=== PATIENT | female | born 1955 | race Caucasian/White ===

== ENCOUNTER 2024-02-11 17:49 | Emergency (ER) | payer MEDICARE, SELFPAY ==
[2024-02-11 18:01] VITALS: BP 173/84; PULSE 73; RESP 18; TEMP 36.6; O2SAT 94; BMI 41.7
[2024-02-11 19:23] VITALS: BP 148/89; PULSE 74; O2SAT 97
[2024-02-11] MEDS: lidocaine-epi 2% 20 mL INJ INJECTION (19:25)
--- NOTE | 2024-02-11 20:30 | W.ED.WOUNDLC ---
HPI - Wound/Laceration General: Chief Complaint: Wound/Laceration Stated Complaint: Left calf laceration - bleeding Time Seen by Provider: 02/11/24 18:05 Source: patient Mode of arrival: ambulatory Limitations: no limitations History of Present Illness: Patient is a 68-year-old female who presents the emergency department the laceration to her left lateral leg after bumping it on a piece of furniture. No blood thinner use, tetanus is up-to-date. Bleeding is controlled with direct pressure on arrival. No distal neurovascular symptoms reported. No contamination or foreign body. Extremity Location: Left: lower leg Place: home Patient tetanus UTD: Yes Context: accidental Associated symptoms: Denies chills, fever(s), nausea or vomiting Related Data Allergies Allergy/AdvReac Type Severity Reaction Status Date / Time Cephalosporins Allergy ALGY-Rash Verified 02/11/24 18:03 Review of Systems General: Reports: 10 or more systems reviewed and unremarkable except in HPI and below Const: Denies: fever(s) or chills Card: Denies: chest pain Resp: Denies: dyspnea GI: Denies: abdominal pain, nausea, vomiting or diarrhea Musc: Denies: extremity pain or joint pain Skin/Breast: Reports: skin pain, skin tenderness and new lesions (Laceration left lateral lower leg); Denies: rash Neuro: Denies: headache(s) Physical Exam Const: COMMON NORMALS: no acute distress, average body habitus, patient oriented x3, no limitations, healthy appearing, alert and well nourished HENMT: COMMON NORMALS: normocephalic and atraumatic HEAD & SCALP: normocephalic and atraumatic Neck/C-Spine: COMMON NORMALS: full ROM, no lymphadenopathy, supple and no meningeal signs Resp: COMMON NORMALS: normal respiratory effort, No use of accessory muscles and clear to auscultation bilaterally AUSCULTATION: clear to auscultation bilaterally Cardio: COMMON NORMALS: regular rate and regular rhythm RATE: regular rate RHYTHM: regular rhythm Extremity: COMMON NORMALS: full ROM and capillary refill normal Neuro: COMMON NORMALS: patient oriented x3 SENSORIUM/ORIENTATION: Yes alert MENINGEAL SIGNS: Yes no meningeal signs Skin: COMMON NORMALS: turgor normal NARRATIVE SKIN EXAM: Irregular shaped, clean, 6 cm laceration to left distal lower leg to the lateral aspect. There is no active bleeding at this time and no contamination or foreign body. GENERAL SKIN EXAM: turgor normal Procedures Laceration Laceration 1: Site: lower extremity Side (If applicable): left Size (cm): 6 Description: irregular and clean Depth: simple, single layer Local Anesthetic: lidocaine 2% and with epi Amount of anesthesia used (mL): 8 Pre-repair: wound explored Skin layer closed with: other (Prolene) Size (cm): 4-0 Number of sutures: 10 Technique: simple, interrupted Course Vital Signs: Vital signs: Vital Signs Temperature 97.9 F 02/11/24 18:01 Pulse Rate 74 02/11/24 19:23 Respiratory Rate 18 02/11/24 18:01 Blood Pressure 148/89 02/11/24 19:23 Pulse Oximetry 97 02/11/24 19:23 Oxygen Delivery Me thod Room Air 02/11/24 18:01 MDM - Wound/Laceration Medical Decision Making Patient's tetanus was up-to-date, did have a laceration earlier today was repaired here in the emergency department, see procedure note. It was clean, no foreign body or contamination. No need for antibiotics at this time. Procedure was tolerated well, and she will have the sutures out in 7-10 days. Return precautions were given. No radiology studies performed this visit Discharge Plan Discharge Patient Disposition: Home Clinical Impression: Laceration of left leg Condition: Stable Discharge Orders: Discharge ED (Routine); Ordered 02/11/24 Ordered By: Rosales Carter Patient Instructions: Laceration (ED) Activity Restrictions/Additional Instructions: Sutures out in 7-10 days. Keep wound dry for the first 48 hours, afterwards you may dab with warm soap and water and then dab dry afterwards. Avoid sun exposure. Monitor for any signs of infection and return with any concerns. Tylenol/ibuprofen for pain. Coding Level of Care Code ED Cam Milling Machine Operator for Joey Chinchilla
== END 2024-02-11 19:26 | disposition home or self-care (01) ==
PROVIDERS: Emergency Provider Physician Assistant
DX: S81.812A Laceration without foreign body, left lower leg, initial encounter (principal); W22.8XXA Striking against or struck by other objects, initial encounter
CPT/HCPCS: 12002; 99282

== ENCOUNTER 2024-05-12 09:28 | Outpatient (CLI) | payer MEDICARE, SELFPAY ==
--- NOTE | 2024-05-12 09:40 | MM_ITS ---
WS: [id number] VIEWS: MLO and CC views both breasts. 3D digital tomosynthesis is also included in this exam. No comparisons. Findings: There are scattered areas of fibroglandular density. Questionable small spiculated nodule in the upper outer quadrant of the LEFT breast at mid depth. No suspicious calcification. Prominent calcified density with architectural distortion seen in the lateral posterior RIGHT breast has the appearance of a residual hematoma. Compression spot images with tomography of the LEFT breast in the CC, MLO and 90 degree lateral projections would be recommended for follow-up. MM/MM scr BI tomosynthesis [id number] Impression: BI-RADS: 0 - Incomplete: Need additional imaging evaluation. FOLLOW-UP: Need Additional Imaging This mammogram was also analyzed by the Computer Aided Detection System R2 Imag e Fitting Room Operator.
== END 2024-05-12 09:29 | disposition home or self-care (01) ==
LOC: RAD 09:30
PROVIDERS: PCP Family Medicine; Visit Provider Family Medicine
DX: Z12.31 Encounter for screening mammogram for malignant neoplasm of breast (principal); R92.323 Mammographic fibroglandular density, bilateral breasts; N63.21 Unspecified lump in the left breast, upper outer quadrant; N63.10 Unspecified lump in the right breast, unspecified quadrant
CPT/HCPCS: 77063; 77067

== ENCOUNTER 2024-06-28 09:48 | Outpatient (CLI) | payer MEDICARE, SELFPAY ==
--- NOTE | 2024-06-28 10:00 | MM_ITS ---
WS: [email or web address] VIEWS: MLO, CC, and ML views LEFT breast only. 3D digital tomosynthesis is also included in this exam. Comparison made with prior exam of 05/12/2024. Findings: There are scattered areas of fibroglandular density. No suspicious mass, tumor calcification or architectural distortion in the LEFT breast. MM/MM diag LT tomosynthesis [id number] Impression: BI-RADS: 0 - Incomplete: Need additional imaging evaluation. FOLLOW-UP: Need Additional Imaging. Regional ultrasound recommended. This mammogram was also analyzed by the Computer Aided Detection System R2 Imag e Dredge Worker.
--- NOTE | 2024-06-28 10:18 | US_ITS ---
WS: [id number] Exam: US breast LT limited* [id number] Date/Time of Exam: 06/28/2024 10:18 AM Reason For Exam: Abnormal Mammo Regional ultrasound of the LEFT breast from the 2:00 to the 5 o'clock position demonstrates no evidence of suspicious solid mass or nodule. No cysts were identified. Recommendations: Continue yearly screening mammography. US/US breast LT limited* [id number] IMPRESSION: 1. No suspicious ultrasound finding.
== END 2024-06-28 09:49 | disposition home or self-care (01) ==
LOC: RAD 09:50
PROVIDERS: PCP Family Medicine; Visit Provider Family Medicine
DX: N63.25 Unspecified lump in the left breast, overlapping quadrants (principal); R92.323 Mammographic fibroglandular density, bilateral breasts
CPT/HCPCS: 76642; 77061; G0279

== ENCOUNTER → 2024-09-20 14:17 | Outpatient (BNVA) | payer MEDICARE, SELFPAY | PROVIDERS: PCP Family Medicine; Visit Provider Family Medicine | DX: E03.9 Hypothyroidism, unspecified (principal); I10 Essential (primary) hypertension | CPT/HCPCS: 80053; 80061; 84439; 84443; 85025 ==

== ENCOUNTER 2024-10-25 14:18 | Outpatient (CLI) | payer MEDICARE, SELFPAY ==
--- NOTE | 2024-10-25 14:29 | XRR_ITS ---
PROCEDURE INFORMATION: Exam: XR Right Knee Exam date and time: 10/25/2024 2:49 PM Age: 69 years old Clinical indication: Pain; Knee; Right; Additional info: Arthritis TECHNIQUE: Imaging protocol: Radiologic exam of the right knee. Views: 3 views. COMPARISON: No relevant prior studies available. FINDINGS: Bones/joints: Moderate medial compartment narrowing and tricompartment spurring. No fracture or dislocation. No erosive changes. No acute osseous or joint abnormality. Soft tissues: Normal. XR/XR knee RT 3V* [id number] IMPRESSION: Degenerative changes.
== END 2024-10-25 14:19 | disposition home or self-care (01) ==
PROVIDERS: PCP Family Medicine; Visit Provider Family Medicine
DX: M25.561 Pain in right knee (principal); I10 Essential (primary) hypertension; M17.11 Unilateral primary osteoarthritis, right knee
CPT/HCPCS: 73562; 84439; 84443

== ENCOUNTER → 2024-10-29 08:53 | Outpatient (BNVA) | payer MEDICARE, SELFPAY | PROVIDERS: PCP Family Medicine; Visit Provider Physician Assistant | DX: M25.561 Pain in right knee (principal); M17.11 Unilateral primary osteoarthritis, right knee; Z01.89 Encounter for other specified special examinations | CPT/HCPCS: 73560; 73565; 99204 ==

== ENCOUNTER → 2024-11-17 11:20 | Outpatient (BNVA) | payer MEDICARE, SELFPAY | PROVIDERS: PCP Family Medicine; Referring Provider Family Medicine; Visit Provider Internal Medicine Cardiovascular Disease | DX: Z01.818 Encounter for other preprocedural examination (principal); R00.0 Tachycardia, unspecified; I10 Essential (primary) hypertension; Z87.74 Personal history of (corrected) congenital malformations of heart and circulatory system; E78.5 Hyperlipidemia, unspecified; R60.0 Localized edema; R06.02 Shortness of breath; Z01.810 Encounter for preprocedural cardiovascular examination | CPT/HCPCS: 36415; 80048; 83880; 93005; 99204 ==

== ENCOUNTER 2024-12-07 07:55 | Outpatient (CLI) | payer MEDICARE, SELFPAY ==
--- NOTE | 2024-12-07 08:00 | CT_ITS ---
WS: [id number] CT RIGHT knee, noncontrast HISTORY: M17.11 - Unilateral primary osteoarthritis, right knee TECHNIQUE: Protocol for [facility] total knee replacement has been obtained. This includes axial imaging through the RIGHT hip, RIGHT knee and RIGHT ankle. DLP: 971.01 mGy.cm COMPARISON: 10/29/2024 Hips: Degenerative air in the SI joints. Very minimal narrowing of the hip joints. No destructive bone lesions. Mild sigmoid diverticulosis. No free fluid in the pelvis. No adenopathy. RIGHT knee: Severe tricompartment osteoarthritis. Osteophytes in all 3 compartments with joint space narrowing. No fracture. Small suprapatellar joint effusion. Moderate-sized Guevara's cyst. Negative RIGHT ankle. CT/CT knee RT [facility] [id number] IMPRESSION: CT imaging provided for [facility] robotic total knee replacement.
[2024-12-07 12:11] LABS: Hematocrit 40.9 % (36-47); Hemoglobin 12.90 g/dL (11.27-16.99); Mean Corpuscular HGB Conc 31.5 g/dL (30-55); Mean Corpuscular Hemoglobin 30.4 pg (27-33); Mean Corpuscular Volume 96.5 fl (85-98); Nucleated Red Blood Cells % 0 %; Platelet Count 189 10^3/cmm (157-399); Red Blood Count 4.24 10^6/uL (3.85-5.65); White Blood Count 7.94 10^3/uL (3.29-11.43)
[2024-12-07 12:25] LABS: Alanine Aminotransferase 13 U/L (0-33); Albumin Level 3.9 g/dL (3.5-5.2); Alkaline Phosphatase 73 U/L (35-105); Anion Gap 11.4 (5-19); Aspartate Amino Transferase 15 U/L (0-32); Blood Urea Nitrogen 27 mg/dL (8-23); Calcium 8.6 mg/dL (8.5-10.5); Carbon Dioxide 29 mmol/L (22-29); Chloride 104 mmol/L (98-107); Globulin 2.9 g/dL (1.3-4.6); Glucose 104 mg/dL (65-115); Osmolality Calculated 297 mOsm/kg (285-295); Potassium 3.4 mmol/L (3.5-5.1); Sodium 141 mmol/L (136-145); Total Protein 6.8 g/dL (6.6-8.7)
[2024-12-07 12:33] LABS: Glucose Urine UA Negative (Normal); Nitrate Urine Negative (Negative); Specific Gravity, Urine 1.028 (1.005-1.030)
[2024-12-07 12:38] LABS: Add Urine Microscopic? YES
== END 2024-12-07 07:56 | disposition home or self-care (01) ==
LOC: RAD 07:57
PROVIDERS: PCP Family Medicine; Visit Provider Student in an Organized Health Care Education/Training Program
DX: M17.11 Unilateral primary osteoarthritis, right knee (principal); Z01.818 Encounter for other preprocedural examination; M46.1 Sacroiliitis, not elsewhere classified; K57.30 Diverticulosis of large intestine without perforation or abscess without bleeding; M25.761 Osteophyte, right knee; M25.461 Effusion, right knee; M71.21 Synovial cyst of popliteal space [Baker], right knee
CPT/HCPCS: 36415; 73700; 80053; 81001; 85025; 99213

== ENCOUNTER → 2024-12-14 09:17 | Outpatient (BNVA) | payer MEDICARE, SELFPAY | PROVIDERS: PCP Family Medicine; Visit Provider Family Medicine | DX: Z01.818 Encounter for other preprocedural examination (principal) | CPT/HCPCS: 81003; 87086 ==

== ENCOUNTER 2024-12-27 15:06 | Observation (INO) | payer MEDICARE, SELFPAY ==
[2024-12-27] VITALS (21 sets, daily range): BP systolic 102–134; BP diastolic 48–89; PULSE 64–82; RESP 16–28; TEMP 36.2–36.8; O2SAT 91–99; BMI 41.8
--- NOTE | 2024-12-27 07:31 | W.PM.OPSUD ---
Surgery/Procedure H&P Update DATE OF PROCEDURE: December 27, 2024 DATE H&P PERFORMED: 12/07/24 H&P UPDATE INFORMATION: I have reviewed H&P completed within last 30 days, I have examined patient prior to procedure and No changes to prior documentation CHANGES TO PREVIOUS DOCUMENTATION: Patient seen and examined and no change in health since last office visit she is cleared the preoperative clearance process her initial UA was a contaminant and had normal elvira recheck with Dr. Jean is negative she denies any urinary symptoms today at this point in time she has been medically optimized and she is ready to proceed with surgical intervention for a right total knee arthroplasty. Patient understands incidence procedure risk benefits complication alternatives surgery and through shared decision-making patient like to proceed with surgical invention. All questions answered at this time. PREOP DIAGNOSIS: Right knee DJD PRIMARY INDICATION FOR PROCEDURE: right knee DJD PLANNED PROCEDURE: Operation Date: 12/27/24 10:00 Proposed Procedures p RIGHT Ashish Robot Total Knee Arthroplasty(Right) - Troy Arellano DO
[2024-12-27] MEDS: acetaminophen 1,000 MG/100 ML PIGGYBACK 400 MG IV ×3 (07:36→23:45)
[2024-12-27 08:11] LABS: Hematocrit 38.7 % (36-47); Hemoglobin 12.50 g/dL (11.27-16.99); Mean Corpuscular HGB Conc 32.3 g/dL (30-55); Mean Corpuscular Hemoglobin 30.0 pg (27-33); Mean Corpuscular Volume 93.0 fl (85-98); Nucleated Red Blood Cells % 0 %; Platelet Count 174 10^3/cmm (157-399); Red Blood Count 4.16 10^6/uL (3.85-5.65); White Blood Count 7.69 10^3/uL (3.29-11.43)
[2024-12-27 08:26] LABS: Anion Gap 15.8 (5-19); Blood Urea Nitrogen 23 mg/dL (8-23); Calcium 9.0 mg/dL (8.5-10.5); Carbon Dioxide 26 mmol/L (22-29); Chloride 104 mmol/L (98-107); Creatinine Clr Calc Pharmacy 66.6916; Glucose 117 mg/dL (65-115); Osmolality Calculated 299 mOsm/kg (285-295); Potassium 3.8 mmol/L (3.5-5.1); Sodium 142 mmol/L (136-145)
--- NOTE | 2024-12-27 09:08 | ANES.PREANE2 ---
Pre-Anesthetic Assessment Height/Weight: Height 1.57 m Weight 103.873 kg Temp Pulse Resp BP Pulse Ox O2 Del Method 97.7 F 71 17 123/89 95 Room Air 12/27/24 08:07 12/27/24 08:07 12/27/24 08:07 12/27/24 08:07 12/27/24 08:07 12/27/24 08:07 Preop Diagnosis: Right knee DJD Operation Date: 12/27/24 10:00 Proposed Procedures p RIGHT Ashish Robot Total Knee Arthroplasty(Right) - Troy Arellano DO Familial anesthetic complications: None Was Beta Claudette taken within 24 hours: N/A Was Clonidine taken within 24 hours: N/A Last intake: Intake Last Liquid Date 12/26/24 Last Liquid Time 00:00 Last Solid Date 12/26/24 Last Solid Time 21:00 Social No alcohol and No tobacco Exam alert, oriented x 3, clear to auscultation bilaterally and regular rate & rhythm Airway Mallampati: Class II Dentition: full CV/HEM PFO closed now Metabolic Hyperlipidemia, Morbid Obesity and Thyroid Disease Anesthetic Plan ASA status: 3 Anesthesia: Regional (specify below) Other: spinal Risk of > 500 ml blood loss (7ml/kg in children): No Medications/Allergies Home Medications ?Medication ?Instructions ?Recorded ?Confirmed ?Last Taken ?Type aspirin 81 mg tablet,delayed 81 mg PO DAILY 04/29/24 12/23/24 12/17/24 History release cholecalciferol (vitamin D3) 50 50 mcg PO DAILY #90 caps 04/29/24 12/23/24 12/23/24 Rx mcg (2,000 unit) capsule mirabegron 50 mg tablet,extended 50 mg PO DAILY #90 tabs 04/29/24 12/23/24 12/23/24 Rx release 24 hr (Myrbetriq) sertraline 100 mg tablet 100 mg PO DAILY #90 tabs 04/29/24 12/27/24 12/27/24 Rx furosemide 40 mg tablet (Lasix) 40 mg PO QAM 30 days #90 tabs 10/25/24 12/23/24 12/23/24 Rx levothyroxine 50 mcg capsule 50 mcg PO DAILY #90 caps 10/25/24 12/27/24 12/27/24 Rx potassium chloride 10 mEq 10 meq PO DAILY #90 caps 10/25/24 12/23/24 12/23/24 Rx capsule,extended release atorvastatin 10 mg tablet 10 mg PO DAILY #90 tabs 11/15/24 12/23/24 12/23/24 Rx alprazolam 0.25 mg tablet 0.25 mg PO DAILY PRN Anxiety 11/17/24 12/23/24 Unknown History diltiazem HCl 240 mg 240 mg PO DAILY #90 caps 11/17/24 12/27/24 12/27/24 Rx capsule,extended release 24 hr (Cardizem CD) Allergies Allergy/AdvReac Type Severity Reaction Status Date / Time Cephalosporins Allergy ALGY-Rash Verified 12/23/24 14:19 Current Medications Generic Name Dose Route Start Last Admin Trade Name Freq PRN Reason Stop Dose Admin Sodium Chloride 1,000 mls @ 30 mls/hr 12/27/24 07:15 12/27/24 07:38 Sodium Chloride 0.9% IV 12/28/24 07:14 30 mls/hr .Q24H JAY Administration PFSH Anesthesia Medical History Hypovitaminosis D Hyperlipidemia Anxiety Moderate major depression BMI 40.0-44.9, adult Hypertension Hypothyroidism Overactive bladder Tachycardia History of fracture of radius Surgical History History of knee replacement History of hysterectomy H/O arthroscopic knee surgery History of section Family History Grandfather Stroke Alcohol dependence Grandmother Liver disease Father Diabetes Stroke Mother Lung cancer Social History Smoking and tobacco/nicotine status: never used tobacco/nicotine Alcohol intake: current Alcohol intake frequency: holidays/special occasions only Alcohol type: wine Substance/Drug Use: never Data Anesthesia 12/27/24 07:55 12/27/24 07:40 Short CBC 12/27/24 Range/Units 07:55 WBC 7.69 (3.29-11.43) 10^3/uL Hgb 12.50 (11.27-16.99) g/dL Hct 38.7 (36-47) % MCV 93.0 (85-98) fl Plt Count 174 (157-399) 10^3/cmm Neut % (Auto) 73.9 % Neut # (Auto) 5.69 (1.8-7.7) 10^3/uL BMP 12/27/24 07:40 Sodium 142 Potassium 3.8 Chloride 104 Carbon Dioxide 26 BUN 23 Creatinine 0.9 Glucose 117 H Calcium 9.0 Anesthesia Procedures Nerve Block Nerve Block 1: Main Anesthesia: spinal anesthesia block Time Out Performed: Yes Consent: requested by attending/covering physician, from patient, from other, risks and benefits reviewed and patient agrees to proceed Nerve block location: adductor canal (R) Anesthesia monitors applied: pulse oximetry, EKG, BP cuff and oxygen Anesthetic Used: ropivicaine 0.5% (30 ml) and with decadron (4 mg) Ultrasound used to: recognize landmarks and visualize and ID femerol nerve Interscalene/Femoral BLK: 4 stimuplex 21 g needle used for position and inplane approach, visualize local anesthetic spread and no vascular puncture identified Injection: neg aspiration of heme Patient Tolerated Procedure: well Complications: none
[2024-12-27] MEDS: tranexamic acid 1,000 mg/10mL SDV 1000 MG IV (10:14)
[2024-12-27] MEDS: ROPivacaine 0.2% Premix 100 mL 200 MG INTRA-ARTI (10:42)
[2024-12-27] MEDS: tranexamic acid 1,000 mg/10mL SDV 1000 MG XX (10:42)
--- NOTE | 2024-12-27 12:08 | W.PM.BPON ---
Date of Procedure: 12/27/2024 Surgeon: Troy Arellano DO Senior Professional Services Consultant(s): Mele Arellano PA-C Procedure(s) performed: Right total knee arthroplasty?Ashish robotic assisted Findings of the procedure(s): Patient underwent procedure as planned without issues or complications taken to recovery in stable condition Estimated blood loss: 25 mL Specimen(s) removed: Tibia femur patellar bone cuts removed Post-operative diagnosis: Right knee DJD
--- NOTE | 2024-12-27 12:10 | P.OP_ITS ---
Operative Report Date of procedure: December 27, 2024 Surgeon: Tryo Arellano DO Transcripter: Mele Arellano PA-C: PA was necessary for assistance in this case with leg positioning retraction and protection of neurovascular structures as well as assistance in implantation wound closure and dressing application. Procedure: Preoperative diagnosis: Right knee degenerative joint disease Post-op diagnosis: Same Procedure done: Right total knee arthroplasty, cemented?robotic assisted Ashish Implants: Ji triathlon size 4 femur CR cemented?Right Ji triathlon size? 3 tibia universal baseplate cemented [place] triathlon symmetric patella size 31 mm [place] triathlon polyethylene 10mm Surgeon: Troy Arellano DO Estimated blood?loss: 25 mL Tourniquet 67inutes IV fluids: 1000 mL Urine output: 300 mL Complications: None Condition: stable Disposition: floor Brief History: Patient is a 69-year-old female with with chronic?Right knee degenerative joint disease.? Patient has been worked up in the outpatient setting in the orthopedic office at this point time through shared decision making given? [id number]-mj-ilic arthritis as well as failed conservative treatment, and pt would?like to proceed with a?Right total knee arthroplasty.? Through shared decision making elected to proceed with surgical intervention for?Right total knee arthroplasty with Ashish robotic assisted.? We talked about continued conservative treatment and surgical intervention as far as the risk benefits complications alternatives surgical and nonsurgical treatment options.? At this point time understanding patient risks with surgery patient agrees to proceed with surgical intervention.? Once again? risk with surgery include but are not?limited to make it better make it worse blood clot, heart attack, stroke, on the table, infection, injury to nerves or vessels, persistent pain, arthrofibrosis, implant failure.? Understanding these risks patient agrees to proceed with surgical intervention consent was obtained in the preoperative holding area.? All questions answered. Procedure: Patient was seen and evaluated in the preoperative holding area.? Consent was reviewed and signed with patient with plan for?Right total knee arthroplasty.? All questions answered.? Correct extremity marked.? Patient seen and evaluated by the anesthesia department and once cleared for surgery was taken back to the operative suite.? Patient was placed into a supine position on the OR table.? All bony prominences were well-padded.? Patient was appropriately secured to the bed.? Patient underwent anesthesia per the anesthesia department.? Patient received spinal anesthesia and? Moran catheter was placed.? A nonsterile tourniquet was applied to the?Right thigh.? At this point in time a final timeout performed.? Patient received appropriate preoperative antibiotics and TXA. Next the?Right?lower extremity was then prepped and draped in standard orthopedic fashion. Esmarch tourniquet was used exsanguinate the?Right?lower extremity.? Tourniquet was insufflated to 300mmHg. A standard anterior incision was made over midline of the knee.? Sharp scalpel excision through skin and subcutaneous tissue full-thickness skin flaps were made.? Fascia was elevated off of the extensor retinaculum was stable with medial parapatellar arthrotomy was then made.? The performed standard sequential releases..? Immediately on entry into the joint patient was found to have severe eburnated bone and tricompartmental arthritic changes noted.? With significant osteophyte formation.? Next the the patella was then stuffed and the knee was then flexed.?? Tisha was placed superiorly around the anterior aspect of the femur this was freed of synovium and I subsequently then placed by 2 femur pins to establish my femur arrays for the Ashish robot.? These were then placed bicortically and? femur array was then appropriately secured with appropriate visualization.? Next attention was turned towards the tibial rays.? These were then drilled sequentially bicortically in parallel fashion and intraincisional.? I then placed my guide as well as my tibial array on in place.? This was appropriately secured and had excellent visualization with the Ashish robot.? Next the tibial checkpoint as well as femur checkpoint were then placed.? At this point time I then subsequently established my head center as well as my medial?lateral malleoli as well as my checkpoints.? Next utilizing standard Ashish technology I then mapped out the appropriate points and confirmation points around the femur as well as the tibia in standard fashion.? Once this was then done I then removed all osteophytes in preparation for dynamic testing.? All osteophytes were removed as well as I removed the ACL and the PCL was excised due to its significant tearing and degeneration noted.? At this point time the knee was brought into full extension and we performed our standard evaluation of our gap balancing stressing his?ligaments and extension as well as flexion appropriate adjustments were made to have appropriate gap balancing in both flexion and extension.? This plan for final cuts to accommodate for patient's deformity and correct deformity according to ligamentous tolerances.? We get a preoperative plan evaluating our implants which was a size 4 femur and a size 3 tibia.? Next we brought in the Ashish robot and sequentially made our femur cuts.? All excess bony cuts were then removed.? Finally we made our tibial cut.? Once this was done a standard PCL retractor was then placed into this position I excised the medial and?lateral meniscus.? The tibial cut was then subsequently removed all excess bony debris was removed.? I then utilized a?lamina chucking and sawing machine operator and remove the posterior osteophytes.? At this point time sized the tibia and confirmed this was a size 3.? I utilized our blunt probe to establish rotation of tibial implant.? Once this was done I then placed my tibia size 3 trial in appropriate position and then subsequently placed tibial pins to hold this into place placed and trialed up to a size 10 mm poly as well as a size 4 femur which was appropriately impacted in place knee was then subsequently brought into extension. Trials were then assessed,? this was stable with varus valgus stress in extension as well as had symmetrical translation when brought into flexion demonstrating symmetrical gaps. I had excellent balance gaps in flexion and extension with varus and valgus stresses.? At this point I was satisfied with these implants these were then verified and opened on the back table size 3 tibia, size 4 femur,? size 10 mm polythickness.? We did confirm appropriate gap balancing and stresses as well as alignment utilizing? Ashish and were satisfied with this plan.? ?At this point time with my trials in place I then towel clip the patella everted this made appropriate measurements subsequently utilizing freehand technique performed by patellar resurfacing this was confirmed to be appropriate resection and subsequently sized to be a 31 mm symmetric.? My drill peg guides were then clamped and appropriate position and appropriate position in the patella for appropriate tracking and parallel with the joint.? Pegs were drilled trial implant was placed and the knee was then subsequently ranged and found to have excellent patellar tracking.? Femur pegs were then drilled.? At this point time all of our trial implants were removed.? All checkpoints as well as guidepins and arrays were removed and appropriate counts made.?Satisfied with our tibial placement rotation I then utilized the keel punch and prepped the tibia.? The wound bed? was thoroughly irrigated and dried and prepped for cementation.? Cement was mixed on the back table.? Once cement was ready this was then covered onto the tibia and the tibial baseplate was then impacted and all excess cement was removed.? Next the polyethylene was then impacted into place on the tibial baseplate.? Next cement was placed onto the femur as well as under the femur implants and impacted in to place and all excess cement was extruded and removed.? Knee was taken into full extension? to clear all excess cement was removed.? Warm saline was placed over the joint.? I then towel clip patella and dried for cementation. cemented the patella into place.? This was all clamped and the cement was allowed to cure.? Thorough irrigation performed with pulse?lavage.? I then placed my periarticular injection while the cement was curing.? Once cured the knee was taken through range of motion and had excellent stability and gaps were balanced in flexion and extension.? Tourniquet was then deflated. hemostasis satisfactory with electrocautery.? Vancomycin powder was placed in wound bed for antibiotic infection prophylaxis. Next I then subsequently closed the capsule with Ethibond suture as well as a running strata fix suture.? Knee was then taken through range of motion 30 times.? Next the skin was then closed in?layered fashion of running stratifix sutures of deep and subcutenous tissue and skin.? ?closed in flexion with yamile for skin, incision was covered with suha incisional VAC, with ABDs soft roll and Obed wrap.? Patient was then awakened from anesthesia and taken to PACU in stable condition. Disposition: Patient taken to PACU in stable condition will be admitted to the floor for pain control PT/OT weight-bear as tolerated?Right?lower extremity dressing changes as needed, DVT prophylaxis. Pain control. Patient will receive appropriate postoperative antibiotics. patient will be seen today by the internal medicine team for medical management.? Patient will follow up with the office in 2 weeks.? Patient understands agrees with current plan.? All questions answered.
--- NOTE | 2024-12-27 12:14 | SUR.OPER ---
pt obtained about a 1 and 1/2 inch skin tear during drape removal. Opsite placed on site.
--- NOTE | 2024-12-27 12:23 | XRR_ITS ---
PROCEDURE INFORMATION: Exam: XR Right Knee Exam date and time: 12/27/2024 12:24 PM Age: 69 years old Clinical indication: Device placement; Joint replacement hardware; Prior surgery; Surgery date: Post-operative (0-2 days); Surgery type: R tka; Additional info: S/P R tka TECHNIQUE: Imaging protocol: Radiologic exam of the right knee. Views: 3 views. COMPARISON: CT knee RT [facility] [id number] 12/07/2024 08:11 AM FINDINGS: Bones/joints: Right knee prosthesis. Air within the knee joint space and anterior soft tissues consistent with recent surgical intervention. Normal alignment. No acute osseous abnormality. Soft tissues: Anterior skin yamile. XR/XR knee RT 3V* [id number] IMPRESSION: Postop changes of the right knee.
--- NOTE | 2024-12-27 12:29 | PM.PACU ---
PACU note Narrative: Patient is a 69-year-old female just underwent a right total knee arthroplasty. Pt transferred to PACU in stable condition. Dressing is dry. pt is awake and alert. Distal pulses are palpable toes are warm and well-perfused. Cap refill is normal and under 2 seconds. Unable to perform any assessment on motor or sensation due to residual spinal block. Pain is controlled. Exam: awake Disposition: admitted
--- NOTE | 2024-12-27 13:15 | PC.NURSE ---
Pt arrived to outpatient extended care at 1305 via bed, pt is awaiting bed placement on floor, vital signs stable, pt given PO liquids, tolerating well. Family at bedside.
--- NOTE | 2024-12-27 13:57 | PC.NURSE ---
Pt beside assignment to room [id number]
--- NOTE | 2024-12-27 13:59 | PC.NURSE ---
Room assignment given, pt going to room 269 on 2nd floor. Report given to glen. Pt vital signs stable.
--- NOTE | 2024-12-27 14:46 | PM.HP ---
Providers/Chief Complaint Admitting Physician: This will serve as a consult note Primary Care Provider: Frankie Xiong MD Chief Complaint: M17.11 History of Present Illness This is a consult note Jessica Goldstein is a 69 year old female with a past medical history of hypertension, hypothyroidism, history of PFO and TIA status post closure, who presents [facility] for right total knee arthroplasty, she is seen postoperatively, currently alert oriented x 3, following commands on room air, normotensive, has no pain complaints, patient's is at bedside Review of Systems Card: Denies: chest pain Resp: Denies: dyspnea GI: Denies: abdominal pain Medications/Allergies Home Medications ?Medication ?Instructions ?Recorded ?Confirmed ?Last Taken ?Type aspirin 81 mg tablet,delayed 81 mg PO DAILY 04/29/24 12/23/24 12/17/24 History release cholecalciferol (vitamin D3) 50 50 mcg PO DAILY #90 caps 04/29/24 12/23/24 12/23/24 Rx mcg (2,000 unit) capsule mirabegron 50 mg tablet,extended 50 mg PO DAILY #90 tabs 04/29/24 12/23/24 12/23/24 Rx release 24 hr (Myrbetriq) sertraline 100 mg tablet 100 mg PO DAILY #90 tabs 04/29/24 12/27/24 12/27/24 Rx furosemide 40 mg tablet (Lasix) 40 mg PO QAM 30 days #90 tabs 10/25/24 12/23/24 12/23/24 Rx levothyroxine 50 mcg capsule 50 mcg PO DAILY #90 caps 10/25/24 12/27/24 12/27/24 Rx potassium chloride 10 mEq 10 meq PO DAILY #90 caps 10/25/24 12/23/24 12/23/24 Rx capsule,extended release atorvastatin 10 mg tablet 10 mg PO DAILY #90 tabs 11/15/24 12/23/24 12/23/24 Rx alprazolam 0.25 mg tablet 0.25 mg PO DAILY PRN Anxiety 11/17/24 12/23/24 Unknown History diltiazem HCl 240 mg 240 mg PO DAILY #90 caps 11/17/24 12/27/24 12/27/24 Rx capsule,extended release 24 hr (Cardizem CD) Allergies Allergy/AdvReac Type Severity Reaction Status Date / Time Cephalosporins Allergy ALGY-Rash Verified 12/23/24 14:19 PFSH Acute PFSH: Medical History Hypovitaminosis D Hyperlipidemia Anxiety Moderate major depression BMI 40.0-44.9, adult Hypertension Hypothyroidism Overactive bladder Tachycardia History of fracture of radius Surgical History History of knee replacement History of hysterectomy H/O arthroscopic knee surgery History of section Family History Grandfather Stroke Alcohol dependence Grandmother Liver disease Father Diabetes Stroke Mother Lung cancer Social History Smoking and tobacco/nicotine status: never used tobacco/nicotine Alcohol intake: current Alcohol intake frequency: holidays/special occasions only Alcohol type: wine Substance/Drug Use: never Vitals/I&O/Wt Last Vital Signs Temp 97.2 F L 12/27/24 13:45 Pulse 65 12/27/24 14:00 Resp 18 12/27/24 13:45 BP 112/56 12/27/24 14:00 Pulse Ox 94 12/27/24 14:00 O2 Del Method Room Air 12/27/24 14:00 O2 Flow Rate 6 12/27/24 12:21 12/26/24 12/27/24 12/27/24 22:59 06:59 14:59 Intake Total 1439.167 / 1439.167 Output Total 325 / 325 Balance 1114.167 / 1114.167 Weight last 48 hrs Weight 103.873 kg Physical Exam Const: COMMON NORMALS: no acute distress and patient oriented x3 Resp: COMMON NORMALS: normal respiratory effort, No retractions, No use of accessory muscles and clear to auscultation bilaterally AUSCULTATION: clear to auscultation bilaterally Cardio: COMMON NORMALS: no JVD, regular rate, regular rhythm, S1 normal heart sound present and S2 normal heart sound present RATE: regular rate RHYTHM: regular rhythm HEART SOUNDS: S1 normal heart sound present and S2 normal heart sound present GI: COMMON NORMALS: Normal to inspection, nondistended, normoactive bowel sounds present, Soft to palpation and non-tender Extremity: COMMON NORMALS: no calf tenderness and no pedal edema NARRATIVE EXTREMITY EXAM: Right knee is wrapped Right lower extremity DP PT pulses palpable, good cap refill, Left lower extremity, DP PT pulses palpable, good cap refill Neuro: COMMON NORMALS: patient oriented x3, CN's II-XII intact bilaterally and moves all extremities Psych: COMMON NORMALS: mental status grossly normal Urinary Catheter Management: Moran: Cath Placed During This Visit: yes Urinary Catheter Date of Insertion: 12/27/24 Urinary Catheter Time of Insertion: 10:10 Data 12/27/24 07:55 12/27/24 07:40 A&P Assessment and plan 1. Hypertension: 2. Hypothyroidism: 3. Right knee DJD: Plan: Right knee degenerative joint disease - Status post right knee total arthroplasty - Pain control and anticoagulation as per orthopedic team Hypothyroidism continue levothyroxine Hypertension continue Cardizem Continue sertraline Continue aspirin, statin, hold Lasix PDMP PDMP Reviewed: Last Reviewed 12/27/24 14:45 by Brian Chester MD Attestations Medical Necessity Statement*: Patient requires hospitalization for right knee arthroplasty Diagnoses Hypertension I10 Hypothyroidism E03.9 Right knee DJD M17.11
--- NOTE | 2024-12-27 15:21 | ANE.PACU2 ---
Inpatient post-anesthesia follow up: Airway intact: Yes Vital signs: Temperature 97.2 F Pulse Rate 65 Respiratory Rate 18 Blood Pressure 112/56 Pulse Oximetry 94 Oxygen Delivery Me thod Room Air Oxygen Flow Rate 6 Fraction of Inspir ed Oxygen Hydration adequate: Yes Nausea and vomiting: No Pain level: 1 Mental status: Baseline
[2024-12-27] MEDS: oxyCODONE 5 mg IR Tab/Cap PO ×2 (16:26→21:03)
[2024-12-27] MEDS: calcium carb-vit d 600mg/400unit 1 Tablet 1 EACH PO (16:27)
[2024-12-27] MEDS: chlorhexidine gluconate 0.12% Btl 473 mL 30 ML MUCOUS MEM (16:28)
[2024-12-27] MEDS: tranexamic acid 1,000 MG/100 ML PREMIX 600 MG IV (17:46)
[2024-12-28 04:50] VITALS: RESP 16
[2024-12-28] MEDS: oxyCODONE 5 mg IR Tab/Cap PO (04:50)
[2024-12-28 04:51] LABS: Hematocrit 37.2 % (36-47); Hemoglobin 12.00 g/dL (11.27-16.99); Mean Corpuscular HGB Conc 32.3 g/dL (30-55); Mean Corpuscular Hemoglobin 30.4 pg (27-33); Mean Corpuscular Volume 94.2 fl (85-98); Nucleated Red Blood Cells % 0 %; Platelet Count 184 10^3/cmm (157-399); Red Blood Count 3.95 10^6/uL (3.85-5.65); White Blood Count 14.86 10^3/uL (3.29-11.43)
[2024-12-28 04:52] VITALS: BP 138/70; PULSE 67; RESP 16; TEMP 36.6; O2SAT 95
[2024-12-28 05:20] LABS: Blood Urea Nitrogen 16 mg/dL (8-23); Calcium 9.0 mg/dL (8.5-10.5); Carbon Dioxide 23 mmol/L (22-29); Chloride 106 mmol/L (98-107); Creatinine Clr Calc Pharmacy 75.0280; Glucose 139 mg/dL (65-115); Osmolality Calculated 295 mOsm/kg (285-295); Sodium 141 mmol/L (136-145)
[2024-12-28 05:25] LABS: Anion Gap 16.1 (5-19); Potassium 4.1 mmol/L (3.5-5.1)
[2024-12-28 07:56] VITALS: BP 123/80; PULSE 68; RESP 16; TEMP 36.6; O2SAT 98
[2024-12-28] MEDS: ATORVASTATIN 10 MG TABLET PO (08:25)
[2024-12-28] MEDS: calcium carb-vit d 600mg/400unit 1 Tablet 1 EACH PO (08:25)
[2024-12-28] MEDS: sennosides-docusate Tablet 2 TAB PO (08:25)
[2024-12-28] MEDS: APIXABAN 2.5 MG TABLET PO (08:25)
[2024-12-28] MEDS: multivitamin therapeutic Tablet 1 TAB PO (08:26)
[2024-12-28] MEDS: acetaminophen 1,000 MG/100 ML PIGGYBACK 400 MG IV (08:27)
--- NOTE | 2024-12-28 08:54 | PC.NURSE ---
SCDs Pt up with PT, contraindicated at this time.
[2024-12-28] MEDS: dilTIAZem ER (24HR) 240 mg Capsule PO (09:22)
--- NOTE | 2024-12-28 11:05 | PC.CHAP ---
Pastoral Care Encounter/Spiritual Assessment Type of Contact [] Declined culinary worker visit [] Patient/Family/Request visit [] Outpatient visit [] Follow-up visit [] Physician referral [] Code/Alert [x] Routine visit [] Staff referral [] Actively dying [] Patient sleeping [] Family support [] [] Out of room [] Palliative care [] [] Receiving care in room [] Pre-surgical visit [] Trauma [] Long length of stay [] ICU visit [] Other: Relational/Emotional Strength [x] Patient feels connected with others/family/visitors/staff [] Distress [] Loneliness/isolation [] Abandonment Spirituality of Patient [x] Person of Gin [] Attends Cheondoism of their Gin [x] Believes in Prayer [] Reads Bible or Hinduism materials [] There are Spiritual issues to be addressed Non Emergency Services Ambulance Driver Interventions [x] Prayer [x] Active listening [x] Non-anxious presence [x] Spiritual/emotional support [] Crisis/trauma care [] Spiritual counseling [] Bereavement support [] Provided bereavement packet [] Provided Bible/devotional materials [] Provided toy/stuffed animal, coloring book to patient or family member [] Provided Communion [] Anointing/[place] [] Salvation [x] Completed spiritual assessment [] Other: Impact on Illness or Injury [] Angry [] Fearful [] Anxious [] Often cries [] Exhaustion [] Unable to work [] Unable to attend christianity [] Unable to walk/stand [] Unable to read [] Unable to drive [] Unable to eat/drink [] Unable to sleep [] Unable to be with family [] Patient intubated [] Other: Summary Time spent with patient 5 min Pastoral Care Encounter/Spiritual Assessment Type of Contact [] Declined culinary worker visit [] Patient/Family/Request visit [] Outpatient visit [] Follow-up visit [] Physician referral [] Code/Alert [] Routine visit [] Staff referral [] Actively dying [] Patient sleeping [] Family support [] [] Out of room [] Palliative care [] [] Receiving care in room [] Pre-surgical visit [] Trauma [] Long length of stay [] ICU visit [] Other: Relational/Emotional Strength [] Patient feels connected with others/family/visitors/staff [] Distress [] Loneliness/isolation [] Abandonment Spirituality of Patient [] Person of Gin [] Attends Cheondoism of their Gin [] Believes in Prayer [] Reads Bible or Hinduism materials [] There are Spiritual issues to be addressed Non Emergency Services Ambulance Driver Interventions [] Prayer [] Active listening [] Non-anxious presence [] Spiritual/emotional support [] Crisis/trauma care [] Spiritual counseling [] Bereavement support [] Provided bereavement packet [] Provided Bible/devotional materials [] Provided toy/stuffed animal, coloring book to patient or family member [] Provided Communion [] Anointing/[place] [] Salvation [] Completed spiritual assessment [] Other: Impact on Illness or Injury [] Angry [] Fearful [] Anxious [] Often cries [] Exhaustion [] Unable to work [] Unable to attend christianity [] Unable to walk/stand [] Unable to read [] Unable to drive [] Unable to eat/drink [] Unable to sleep [] Unable to be with family [] Patient intubated [] Other: Summary Time spent with patient
[2024-12-28 11:14] VITALS: BP 152/98; PULSE 61; RESP 17; TEMP 36.4; O2SAT 98
--- NOTE | 2024-12-28 12:39 | PM.DCS ---
Discharge Providers Date of Admission: 12/27/24 15:06 Date of Discharge: December 28, 2024 Attending Provider at Admission: Troy Arellano DO Attending Provider at Discharge: Troy Arellano DO Consults: Dr. Chester?hospitalist Primary Care Provider: Frankie Xiong MD Diagnoses at Discharge Discharge Diagnosis 1. S/P total knee arthroplasty: 2. Hypertension: 3. Hypothyroidism: 4. Right knee DJD: Reason for Visit Reason for Visit: M17.11 Brief History: Status post right total knee arthroplasty?Ashish robotic assisted Hospital Course Hospital Course Patient presented to the preoperative holding area with plan for right total knee arthroplasty after patient has been worked up in the outpatient setting for failed conservative treatment of [right] knee degenerative joint disease. Once cleared by anesthesia for surgery patient subsequently was taken back to the operative suite underwent anesthesia per anesthesia department and then subsequently underwent a [right] total knee arthroplasty. Procedure was performed without any complications patient was taken to PACU in stable condition patient recovered well in PACU and then was admitted to the floor postoperatively internal medicine was consulted and on board for medical management and assistance with care. Patient received appropriate PT/OT, postoperative antibiotics, postoperative TXA, pain control, postoperative DVT prophylaxis. Elevation and ice. Patient encouraged for knee range of motion allowed weightbearing as tolerated to the operative lower extremity. Dressing was changed as needed, labs were monitored daily. Patient recovered well postoperatively and worked well and progressed well with therapy. It was determined on postoperative day [1] the patient was stable for discharge from an orthopedic standpoint and medicine. Patient was comfortable with discharge and plan was discharged home. Patient received appropriate discharge instructions as well as pain medication and DVT prophylaxis postoperatively. Given appropriate instructions for dressing management. Patient will follow-up with Dr. Arellano/orthopedics in the office in 2 weeks. All questions answered. Understand if there is any issues questions or concerns and contact the office. Physical Exam Narrative: Right knee examination: Dressing on in place, clean dry and intact. No evidence of saturation. Patient has normal postoperative swelling and tenderness to palpation to the knee. Compartments are soft compressible,'s calf soft and nontender. Sensations intact to light touch distally. Distal pulses are palpable. Patient is able to wiggle toes as well as plantarflex and dorsiflex ankle. The patient Urinary Catheter Management: Moran: Cath Placed During This Visit: yes, but has since been removed by the nurse Reason for Continuing Indwelling Catheter: Required Immobilization for Trauma or Surgery or Anesthesia Urinary Catheter Date of Insertion: 12/27/24 Urinary Catheter Time of Insertion: 10:10 Date Urinary Catheter Removed: 12/27/24 Time Urinary Catheter Discontinued: 21:22 Discharge Data Studies Completed and Pending Completed Studies During Hospitalization Category Date Time Status XR knee RT 3V* [id number] Routine Exams 12/27/24 12:23 Completed Pending at discharge Category Date Time Status Basic Metabolic Panel AM LABS Lab 12/29/24 04:00 Ordered Basic Metabolic Panel AM LABS Lab 12/30/24 04:00 Ordered Complete Blood Count w/Auto AM LABS Lab 12/29/24 04:00 Ordered Complete Blood Count w/Auto AM LABS Lab 12/30/24 04:00 Ordered Radiology Impressions Knee X-Ray 12/27/24 12:23 IMPRESSION: Postop changes of the right knee. Laboratory Results WBC 14.86 10^3/uL (3.29-11.43) H 12/28/24 04:06 RBC 3.95 10^6/uL (3.85-5.65) 12/28/24 04:06 Hgb 12.00 g/dL (11.27-16.99) 12/28/24 04:06 Hct 37.2 % (36-47) 12/28/24 04:06 MCV 94.2 fl (85-98) 12/28/24 04:06 MCH 30.4 pg (27-33) 12/28/24 04:06 MCHC 32.3 g/dL (30-55) 12/28/24 04:06 RDW 14.4 % (12.1-15.1) 12/28/24 04:06 Plt Count 184 10^3/cmm (157-399) 12/28/24 04:06 MPV 10.3 fL (7.4-10.4) 12/28/24 04:06 Neut % (Auto) 89.6 % 12/28/24 04:06 Lymph % (Auto) 6.3 % 12/28/24 04:06 [place] % (Auto) 3.2 % 12/28/24 04:06 Eos % (Auto) 0.0 % 12/28/24 04:06 Baso % (Auto) 0.1 % 12/28/24 04:06 Neut # (Auto) 13.31 10^3/uL (1.8-7.7) H 12/28/24 04:06 Lymph # (Auto) 0.9 10^3/uL (0.8-4.8) 12/28/24 04:06 [place] # (Auto) 0.5 10^3/uL (0.2-0.9) 12/28/24 04:06 Eos # (Auto) 0.0 10^3/uL (0.0-0.8) 12/28/24 04:06 Baso # (Auto) 0.0 10^3/uL (0.0-0.1) 12/28/24 04:06 Nucleated RBC % (auto) 0 % 12/28/24 04:06 Nucleated RBCs # 0.0 /100WBC 12/28/24 04:06 Sodium 141 mmol/L (136-145) 12/28/24 04:06 Potassium 4.1 mmol/L (3.5-5.1) 12/28/24 04:06 Chloride 106 mmol/L (98-107) 12/28/24 04:06 Carbon Dioxide 23 mmol/L (22-29) 12/28/24 04:06 Anion Gap 16.1 (5-19) 12/28/24 04:06 BUN 16 mg/dL (8-23) 12/28/24 04:06 Creatinine 0.8 mg/dL (0.5-0.9) 12/28/24 04:06 GFR Calculation 71.1 mL/min (90-130) L 12/28/24 04:06 Glucose 139 mg/dL (65-115) H 12/28/24 04:06 Calculated Osmolality 295 mOsm/kg (285-295) 12/28/24 04:06 Calcium 9.0 mg/dL (8.5-10.5) 12/28/24 04:06 Blood Type A Positive 12/27/24 07:40 Rho(D) Type Rh positive 12/27/24 07:40 Antibody Screen Negative 12/27/24 07:40 Vitals Last Vital Signs Temp 97.6 F 12/28/24 11:14 Pulse 61 12/28/24 11:14 Resp 17 12/28/24 11:14 BP 152/98 12/28/24 11:14 Pulse Ox 98 12/28/24 11:14 O2 Del Method Room Air 12/28/24 11:14 O2 Flow Rate 6 12/27/24 12:21 Discharge Plan Discharge Patient Disposition: Home Health Service Condition: Stable Prescriptions: New Eliquis 2.5 mg tablet 2.5 mg PO BID 14 Days Qty: 28 0RF oxycodone 5 mg tablet 5 mg PO Q6H PRN (Reason: pain postop) 7 Days Qty: 28 0RF clindamycin HCl [Cleocin HCl] 150 mg capsule 150 mg PO Q8H 7 Days Qty: 21 0RF Continued aspirin 81 mg tablet,delayed release (DR/EC) 81 mg PO DAILY sertraline 100 mg tablet 100 mg PO DAILY Qty: 90 1RF mirabegron [Myrbetriq] 50 mg tablet extended release 24 hr 50 mg PO DAILY Qty: 90 1RF cholecalciferol (vitamin D3) 50 mcg (2,000 unit) capsule 50 mcg PO DAILY Qty: 90 1RF furosemide [Lasix] 40 mg tablet 40 mg PO QAM 30 Days Qty: 90 1RF potassium chloride 10 mEq capsule, extended release 10 meq PO DAILY Qty: 90 1RF alprazolam 0.25 mg tablet 0.25 mg PO DAILY PRN (Reason: Anxiety) diltiazem HCl [Cardizem CD] 240 mg capsule,extended release 24hr 240 mg PO DAILY Qty: 90 3RF levothyroxine 50 mcg capsule 50 mcg PO DAILY Qty: 90 1RF atorvastatin 10 mg tablet 10 mg PO DAILY Qty: 90 1RF Solutions Manager OK for DC: Orthopedics Discharge Order = DC NOW: Discharge Order (Routine); Ordered 12/28/24 Ordered By: Troy Arellano Other Ambulatory Orders: DME: Walker (Order) Location: None Selected Ordered By: Troy Arellano Referrals: [facility] [place] [facility] Care ([facility]) [Outside] Troy Arellano DO [Physician, Orthopedics] - 01/11/25 1:30 pm Discharge Diet: Regular Discharge Activity: Limit activity as instructed Patient Instructions: Clindamycin (By mouth), Oxycodone, Slow Release (By mouth), Apixaban (By mouth), Acute Wound Care (DC), Total Knee Replacement (GEN), Opioid Safety, Post Anesthesia Care, Patient Portal & Lucille Instructions Activity Restrictions/Additional Instructions: Orthopedic discharge instructions: Austyn Dressing--Keep dressing on and dry. After 3 days you can remove some of the dressing and shower. disconnect battery pack when showering. Cover the incision with Saran wrap to protect the dressing. Austyn dressing will stay on until follow up appt in 2 weeks. The battery pack for the dressing will at 5-7 days. Battery pack can be removed and discarded once batteries . Patient may weight-bear as tolerate to the operative extremity Utilize walker as needed Encourage knee range of motion Ice and elevate as needed for pain and swelling Take pain medication as prescribed Take antinausea medication as needed Take antibiotic as prescribed Pain medication can cause constipation. take [id number] stool softeners and or MiraLAX. Take prescribed Eliquis twice daily for the next 14 days for blood clot prevention May supplement for pain with Tylenol fort-tyg-ivebhqa as needed(1000 mg every 8 hours-do not exceed more than 3000mg in 24-hour period) No baths or soaks Follow-up in the orthopedic office in 2 weeks Contact the office for any questions or concerns Discharge Attestations Time Spent in Discharge Care*: less than 30 min Quality Metrics Clinical Quality Measures [ No reported AMI, CVA or VTE this stay] Coding Level of Care Code Acute Code for Chg Fwd Diagnoses S/P total knee arthroplasty Z96.659 Hypertension I10 Hypothyroidism E03.9 Right knee DJD M17.11
--- NOTE | 2024-12-28 12:45 | P.PN_ITS ---
Subjective 2 Subjective: Patient was seen this morning, currently alert oriented x 3, following all commands, denies any fevers, no chills, no cough no lightheadedness, discussed DVT prophylaxis on discharge, monitor for bleeding or bloody black stools Vitals/I&O/Wt Last Vital Signs Temp 97.6 F 12/28/24 11:14 Pulse 61 12/28/24 11:14 Resp 17 12/28/24 11:14 BP 152/98 12/28/24 11:14 Pulse Ox 98 12/28/24 11:14 O2 Del Method Room Air 12/28/24 11:14 O2 Flow Rate 6 12/27/24 12:21 12/27/24 12/28/24 12/28/24 22:59 06:59 14:59 Intake Total 610 / 2049.167 1130 / 3179.167 1510 / 1510 Output Total 1000 / 1325 550 / 1875 Balance -390 / 724.167 580 / 6653.968 6588 / 1510 Weight last 48 hrs Weight 113.443 kg Weight 103.873 kg Weight 103.873 kg Physical Exam 2 Const: COMMON NORMALS: no acute distress and patient oriented x3 Resp: COMMON NORMALS: normal respiratory effort, No retractions, No use of accessory muscles and clear to auscultation bilaterally AUSCULTATION: clear to auscultation bilaterally Cardio: COMMON NORMALS: regular rate, regular rhythm, S1 normal heart sound present and S2 normal heart sound present RATE: regular rate RHYTHM: r egular rhythm HEART SOUNDS: S1 normal heart sound present and S2 normal heart sound present GI: COMMON NORMALS: Normal to inspection, nondistended, normoactive bowel sounds present and non-tender Extremity: COMMON NORMALS: no pedal edema Neuro: COMMON NORMALS: patient oriented x3 Psych: COMMON NORMALS: mental status grossly normal Urinary Catheter Management: Moran: Cath Placed During This Visit: yes, but has since been removed by the nurse Reason for Continuing Indwelling Catheter: Required Immobilization for Trauma or Surgery or Anesthesia Urinary Catheter Date of Insertion: 12/27/24 Urinary Catheter Time of Insertion: 10:10 Date Urinary Catheter Removed: 12/27/24 Time Urinary Catheter Discontinued: 21:22 Data 12/28/24 04:06 12/28/24 04:06 A&P Assessment and plan 1. Hypertension: 2. Hypothyroidism: 3. Right knee DJD: Plan: Right knee degenerative joint disease - Status post right knee total arthroplasty - Pain control and anticoagulation as per orthopedic team Hypothyroidism continue levothyroxine Hypertension continue Cardizem Continue sertraline Continue aspirin, statin, Patient will be discharged today PDMP PDMP Reviewed: Last Reviewed 12/27/24 14:45 by Brian Chester MD Attestations 2 Medical Necessity Statement*: Patient will be discharged today Diagnoses Hypertension I10 Hypothyroidism E03.9 Right knee DJD M17.11
[2024-12-28 13:37] VITALS: BP 152/98; PULSE 61; RESP 17; TEMP 36.4; O2SAT 98
== END 2024-12-28 13:38 | disposition home health service (06) ==
LOC: MEDSURG 15:26
PROVIDERS: Physician Assistant; Admitting Provider Student in an Organized Health Care Education/Training Program; PCP Family Medicine; Visit Provider Student in an Organized Health Care Education/Training Program
PROC: 8E0Y0CZ Robotic Assisted Procedure of Lower Extremity, Open Approach (ICD-10-PCS; CPT 27447; principal; 2024-12-27 09:30)
DX: M17.11 Unilateral primary osteoarthritis, right knee (principal); E03.9 Hypothyroidism, unspecified; I10 Essential (primary) hypertension; Z79.82 Long term (current) use of aspirin; Z86.73 Personal history of transient ischemic attack (TIA), and cerebral infarction without residual deficits; R00.0 Tachycardia, unspecified; F41.8 Other specified anxiety disorders; E78.5 Hyperlipidemia, unspecified
CPT/HCPCS: 27447; 20985; 36415; 51702; 73562; 80048; 85025; 86850; 86900; 97116; 97161; 97165; 97530; A4216; C1713; C1776; G0378; J0131; J0169; J1100; J1200; J1885; J2250; J2704; J2795; J3373; J3490; J7030; J7120; J9999; L8699

== ENCOUNTER → 2025-01-11 13:27 | Outpatient (BNVA) | payer MEDICARE, SELFPAY | PROVIDERS: PCP Family Medicine; Visit Provider Physician Assistant | DX: Z98.890 Other specified postprocedural states (principal); Z96.659 Presence of unspecified artificial knee joint | CPT/HCPCS: 73560; 73565; 99024 ==

== ENCOUNTER 2025-01-17 06:00 | Outpatient (CLI) | payer MEDICARE, SELFPAY ==
--- NOTE | 2025-01-17 06:15 | USCV_ITS ---
Jessica Goldstein Age: 69 Gender: F : 1955 Exam Date: 01/17/2025 06:16 Ordering Phys: Shine Eastman MD ([email or web address]) Technologist: [place] [facility] [place] cp sob BP: 130 / 73 HR: 71 Rhythm: Sinus Technical Quality: Adequate MEASUREMENTS (Male / Female) Normal Values 2D ECHO LV Diastolic Diameter PLAX 3.9 cm 4.2 - 5.9 / 3.9 - 5.3 cm IVS Diastolic Thickness 1.1 cm 0.6 - 1.0 / 0.6 - 0.9 cm IVS Systolic Thickness 1.9 cm LVPW Diastolic Thickness 1.2 cm 0.6 - 1.0 / 0.6 - 0.9 cm LVPW Systolic Thickness 1.8 cm LVOT Diameter 1.5 cm LV Ejection Fraction 2D Teich 60.8 % LV Ejection Fraction MOD 4C 64.5 % LV Ejection Fraction MOD 2C 60.8 % LV Ejection Fraction 2C AL 63.9 % LA Diameter 3.6 cm RA Systolic Volume 4C AL 53.1 ml RA Systolic Volume 4C MOD 52.5 ml Aorta at Sinotubular Diameter 3.2 cm M-MODE LA Ao Ratio MM 1.3 AV Cusp Separation MM 2.4 cm DOPPLER AV Peak Velocity 156.0 cm/s LVOT Peak Velocity 117.0 cm/s AV Area Cont Eq vti 1.8 cm squared AV Area Cont Eq pk 1.4 cm squared MV Peak Velocity 103.0 cm/s MV Area PHT 3.5 cm squared Mitral E to A Ratio 0.9 TV Peak Velocity 165.5 cm/s TR Peak Velocity 175.0 cm/s TR Peak Gradient 12.3 mmHg TV Peak E Velocity 130.0 cm/s PV Peak Velocity 98.0 cm/s FINDINGS Left Ventricle Normal left ventricular size, systolic function and ejection fraction of 60%. Normal left ventricular diastolic function. Mild left ventricular hypertrophy. Right Ventricle Normal right ventricular size and systolic function. Right Atrium Normal right atrial size. Left Atrium Normal left atrial size. IA Septum Normal appearance of the interatrial septum. Mitral Valve Normal mitral valve structure. No mitral valve stenosis or regurgitation. Aortic Valve Normal aortic valve structure. No aortic valve stenosis or regurgitation. Tricuspid Valve Normal tricuspid valve structure. No tricuspid valve stenosis. Trace regurgitation. Normal pulmonary pressure. Pulmonic Valve Normal pulmonic valve structure. No pulmonic valve stenosis or regurgitation. Pericardium No pericardial effusion. Aorta Normal diameter of the aortic root and ascending thoracic aorta. IVC Normal IVC diameter. CONCLUSIONS Normal left ventricular size, systolic function and ejection fraction of 60%. Normal left ventricular diastolic function. Mild left ventricular hypertrophy. Normal right ventricular size and systolic function. Normal pulmonary pressure. No significant valvular abnormalities. Shine Eastman MD, FACC (Electronically Signed) Final Date: 22 January 2025 16:30 S
== END 2025-01-17 06:01 | disposition home or self-care (01) ==
LOC: RAD 06:00
PROVIDERS: PCP Family Medicine; Visit Provider Internal Medicine Cardiovascular Disease
DX: R07.9 Chest pain, unspecified (principal); R06.02 Shortness of breath; I51.7 Cardiomegaly
CPT/HCPCS: 93306

== ENCOUNTER 2025-01-21 14:05 | Outpatient (RCR) | payer MEDICARE, SELFPAY | END 2025-02-04 23:59 | disposition home or self-care (01) | LOC: SPT 14:05 | PROVIDERS: PCP Family Medicine; Visit Provider Student in an Organized Health Care Education/Training Program | DX: Z47.1 Aftercare following joint replacement surgery (principal); Z96.651 Presence of right artificial knee joint | CPT/HCPCS: 97110; 97161 ==

== ENCOUNTER 2025-02-05 05:00 | Outpatient (RCR) | payer MEDICARE, SELFPAY | END 2025-03-06 23:59 | disposition home or self-care (01) | LOC: SPT 05:00 | PROVIDERS: PCP Family Medicine; Visit Provider Student in an Organized Health Care Education/Training Program | DX: Z47.1 Aftercare following joint replacement surgery (principal); Z96.651 Presence of right artificial knee joint | CPT/HCPCS: 97110 ==

== ENCOUNTER → 2025-02-16 10:34 | Outpatient (BNVA) | payer MEDICARE, SELFPAY | PROVIDERS: PCP Family Medicine; Visit Provider Internal Medicine Cardiovascular Disease | DX: E78.5 Hyperlipidemia, unspecified (principal); I10 Essential (primary) hypertension; R60.0 Localized edema; I47.19 Other supraventricular tachycardia; I49.1 Atrial premature depolarization; Z87.74 Personal history of (corrected) congenital malformations of heart and circulatory system; R07.9 Chest pain, unspecified | CPT/HCPCS: 93005; 99214 ==

== ENCOUNTER → 2025-02-22 13:02 | Outpatient (BNVA) | payer MEDICARE, SELFPAY | PROVIDERS: PCP Family Medicine; Visit Provider Student in an Organized Health Care Education/Training Program | DX: Z96.651 Presence of right artificial knee joint (principal) | CPT/HCPCS: 73560; 73565; 99024 ==